=== PATIENT | female | born 1935 | race Two or more races ===

== ENCOUNTER 2018-11-20 10:01 | Emergency (ER) | payer OTHER ==
[~2018-11-20] VITALS: Ht 142.2 cm; Wt 65.3 kg
[2018-11-20 10:05] VITALS: BP 139/84; Ht 142.2 cm; Wt 65.3 kg
== END 2018-11-20 12:00 | disposition home or self-care (01) ==
LOC: ED 10:01
DX: J06.9 Acute upper respiratory infection, unspecified (principal); N39.0 Urinary tract infection, site not specified; I10 Essential (primary) hypertension